=== PATIENT | female | born 1945 | race Asian ===

== ENCOUNTER 2020-04-05 11:57 | Outpatient (CLI) | payer MEDICARE, OTHER ==
[2020-04-05 12:45] LABS: CHOL/HDL RATIO 3.4 (<4.4); CHOLESTEROL 250 mg/dL; GLUCOSE,FASTING 114 mg/dL (70-100); HDL CHOLESTEROL 74 mg/dL; LDL CHOLESTEROL,CALCULATED 149 mg/dL; VLDL CHOLESTEROL 27 mg/dL
== END 2020-04-05 11:58 | disposition home or self-care (01) ==
LOC: LAB 11:57
PROVIDERS: ATTEND Internal Medicine
DX: R73.9 Hyperglycemia, unspecified (principal); Z13.6 Encounter for screening for cardiovascular disorders
CPT/HCPCS: 36415; 80061; 82947; 83721